=== PATIENT | male | born 1945 | race Caucasian/White ===

== ENCOUNTER → 2017-11-16 | Outpatient (CLI) | payer OTHER, MEDICARE ==
[~2017-11-16] MED LIST: CYAN250013 PO; ESOM20SU2 PO; METF-420 PO; METF500T4 PO; MULT-991 PO; MULT1TAB64 PO; OMEP-137 PO; TADA20TA33 PO
[2017-11-16 13:22] LABS: PLATELET COUNT, AUTOMATED 236 K/uL (150-450)
== END ==
LOC: LAB 12:13
PROVIDERS: ATTEND Family Medicine
DX: E11.9 Type 2 diabetes mellitus without complications (principal)
CPT/HCPCS: 83036; 85025

== ENCOUNTER → 2018-10-26 | Outpatient (CLI) | payer OTHER, MEDICARE ==
[~2018-10-26] MED LIST changes: +FLU180SY11 IM; -METF-420 PO; +METF-452 PO; +PNEU0.5D3 IM
== END ==
LOC: LAB 15:13
PROVIDERS: ATTEND Family Medicine
DX: Z12.5 Encounter for screening for malignant neoplasm of prostate (principal)
CPT/HCPCS: 36415; 84153

== ENCOUNTER → 2019-03-21 | Outpatient (CLI) | payer OTHER, MEDICARE ==
[2019-03-21 10:20] LABS: PLATELET COUNT, AUTOMATED 220 K/uL (150-450)
== END ==
LOC: LAB 09:57
PROVIDERS: ATTEND Family Medicine
DX: E11.9 Type 2 diabetes mellitus without complications (principal)
CPT/HCPCS: 36415; 82040; 82247; 82310; 82374; 82435; 82565; 82947; 83036; 84075; 84132; 84155; 84295; 84450; 84460; 84520; 85025